=== PATIENT | female | born 1975 | race Asian ===

== ENCOUNTER 2018-06-05 10:29 | Day surgery (SDC) | payer MEDICAID ==
[~2018-06-05 10:29] MED LIST: CeFAZolin 2 GM/DEXTROSE 50 ML IV ONE
[2018-06-05] MEDS ORDERED: ONDANSETRON HCL 4 MG/2 ML VIAL IVP ONE (10:30)
[2018-06-05] MEDS ORDERED: FentaNYL CITRATE-PF 100 MCG/2 ML VIAL IVP ONE (10:30)
[2018-06-05] MEDS ORDERED: MIDAZOLAM HCL 2 MG/2 ML VIAL IVP ONE (10:30)
[2018-06-05] MEDS ORDERED: RINGERS SOLUTION,LACTATED 1,000 ML IV ONE ×2 (10:30→10:39)
[2018-06-05] MEDS ORDERED: SUCCINYLCHOLINE CHLORIDE 20 MG/ML 10 ML VIAL IVP ONE (10:30)
[2018-06-05] MEDS ORDERED: PROPOFOL 1% 20 ML VIAL IVP ONE (10:30)
[2018-06-05] MEDS ORDERED: CeFAZolin 2 GM/DEXTROSE 50 ML IV ONE (10:39)
[2018-06-05 11:06] LABS: EOSINOPHILS % (AUTO) 5.6 % (1.0-6.0); HEMATOCRIT 43.1 % (36-46); HEMOGLOBIN 14.4 g/dL (12.0-16.0); LYMPHOCYTES # (AUTO) 1.7 K/uL (1.0-4.8); MEAN CORPUSCULAR HEMOGLOBIN 29.8 pg (26.0-34.0); MEAN CORPUSCULAR HGB CONC 33.5 G/dL (31.0-37.0); MEAN CORPUSCULAR VOLUME 89 fL (80-100); MONOCYTES # (AUTO) 0.5 K/uL (0.1-1.0); MONOCYTES % (AUTO) 6.7 % (2.0-9.0); NEUTROPHILS # (AUTO) 4.8 K/uL (1.8-7.7); NEUTROPHILS % (AUTO) 63.7 % (40.0-70.0); PLATELET COUNT (AUTO) 312 K/uL (150-450); RED BLOOD CELL COUNT(AUTO) 4.83 MIL/uL (4.00-5.20); RED CELL DISTRIBUTION WIDTH 13.7 % (11.5-14.5)
[2018-06-05] MEDS ORDERED: HEPARIN SODIUM 1000 UNITS/NS 500 ML ONE (13:02)
[2018-06-05] MEDS ORDERED: LIDOCAINE 2%/EPI 1:200,000/PF 20 ML VIAL ONE (13:02)
[2018-06-05] MEDS ORDERED: BUPIVACAINE HCL/PF 0.5% 30 ML VIAL ONE (13:02)
[2018-06-05] MEDS ORDERED: HYDROmorphone 2 MG/ML SYRINGE IVP PRN ×2 (14:15)
[2018-06-05] MEDS ORDERED: ONDANSETRON HCL 4 MG/2 ML VIAL IVP PRN (14:15)
[2018-06-05] MEDS ORDERED: ACETAMINOPHEN 500 MG TABLET PO PRN (14:15)
[2018-06-05] MEDS ORDERED: FentaNYL CITRATE-PF 100 MCG/2 ML VIAL IVP PRN (14:15)
== END 2018-06-05 16:30 | disposition home or self-care (01) ==
LOC: SURGERY 10:29
PROVIDERS: ATTEND Surgery
DX: C50.911 Malignant neoplasm of unspecified site of right female breast (principal)
CPT/HCPCS: 36415; 36561; 71045; 77001; 84703; 85025; C1716; J0330; J0690 ×2; J1644; J2250; J2405; J2704; J3010; J3490; J7120

== ENCOUNTER 2019-05-18 14:03 | Inpatient (IN) | payer MEDICAID ==
[~2019-05-18] VITALS: Ht 160 cm; Wt 65.0 kg
[2019-05-18] MEDS ORDERED: SODIUM CHLORIDE 0.9% 1,650 ML IV ONE (14:35)
[2019-05-18] MEDS ORDERED: ACETAMINOPHEN 500 MG TABLET PO ONE (14:45)
[2019-05-18] MEDS ORDERED: KETOROLAC TROMETHAMINE 30 MG/ML VIAL IVP ONE (14:45)
[2019-05-18 15:01] LABS: BASOPHILS % (AUTO) 0.3 % (0.0-2.0); HEMATOCRIT 40.3 % (36-46); HEMOGLOBIN 12.6 g/dL (12.0-16.0); LYMPHOCYTES # (AUTO) 0.7 K/uL (1.0-4.8); LYMPHOCYTES % (AUTO) 5.5 % (22.0-44.0); MEAN CORPUSCULAR HEMOGLOBIN 26.9 pg (26.0-34.0); MEAN CORPUSCULAR HGB CONC 31.4 G/dL (31.0-37.0); MEAN CORPUSCULAR VOLUME 86 fL (80-100); MONOCYTES # (AUTO) 0.9 K/uL (0.1-1.0); MONOCYTES % (AUTO) 7.4 % (2.0-9.0); NEUTROPHILS # (AUTO) 10.7 K/uL (1.8-7.7); PLATELET COUNT (AUTO) 288 K/uL (150-450); RED CELL DISTRIBUTION WIDTH 15.9 % (11.5-14.5)
[2019-05-18 15:08] LABS: NEUTROPHILS % (AUTO) 85.8 % (40.0-70.0)
[2019-05-18 15:17] LABS: CARBON DIOXIDE 26 mmol/L (22-29); CHLORIDE 99 mmol/L (98-107); POTASSIUM 3.3 mmol/L (3.5-5.1); PROTHROMBIN TIME 10.8 SEC (9.4-11.6); SODIUM SERUM 136 mmol/L (136-145)
[2019-05-18 15:18] LABS: ANION GAP 11 mmol/L (8-16); CALCIUM, TOTAL 9.7 mg/dL (8.8-10.5); CREATININE 0.65 mg/dL (0.60-1.30); GLOMERULAR FILTR. RATE CALC > 60 mL/min (>60); GLUCOSE,RANDOM 106 mg/dL (70-110); UREA NITROGEN, BLOOD 6 mg/dL (7-18)
[2019-05-18] MEDS ORDERED: SODIUM CHLORIDE 0.9% 100 ML ONE (15:25)
[2019-05-18] MEDS ORDERED: IOVERSOL 320 MG/ML 100 ML VIAL ONE (15:25)
[2019-05-18 15:29] LABS: ALANINE AMINOTRANSFERASE 11 U/L (12-78); ALBUMIN 3.8 g/dL (3.4-5.0); ALKALINE PHOSPHATASE 98 U/L (46-116); ASPARTATE AMINOTRANSFERASE 12 U/L (15-37); BILIRUBIN,TOTAL 0.6 mg/dL (0.1-1.0); HCG,QUANTITATIVE 1 mIU/mL (0-6); LIPASE 103 U/L (73-393); TOTAL PROTEIN, SERUM 8.1 g/dL (6.4-8.2)
[2019-05-18 15:38] LABS: LACTIC ACID 1.1 mmol/L (0.4-2.0)
[2019-05-18 15:42] LABS: APPEARANCE,URINE CLOUDY (CLEAR); BILIRUBIN,URINE NEGATIVE (NEGATIVE); GLUCOSE, URINE (UA) NEGATIVE (NEGATIVE); KETONES,URINE TRACE mg/dL (NEGATIVE); LEUKOCYTE ESTERASE ,URINE LARGE (NEGATIVE); NITRATE,URINE NEGATIVE (NEGATIVE); OCCULT BLOOD,URINE LARGE (NEGATIVE); PROTEIN,URINE POS 1+ (NEGATIVE); UROBILINOGEN,URINE 0.2 mg/dL (<=1.0)
[2019-05-18 15:53] LABS: BACTERIA,URINE Moderate /HPF (None Seen); SQUAMOUS EPITHELIAL CELL,UR Few /LPF (None Seen)
[2019-05-18] MEDS ORDERED: POTASSIUM CHLORIDE 20 MEQ ER TABLET PO ONE (16:15)
[2019-05-18] MEDS ORDERED: CefTRIAXone 1 GM/DEXTROSE 50 ML IV ONE (17:15)
[2019-05-18] MEDS ORDERED: SODIUM CHLORIDE 0.9% 1,000 ML IV ONE (17:30)
[2019-05-18] MEDS ORDERED: MORPHINE SULFATE 2 MG/ML SYRINGE IVP PRN (17:30)
[2019-05-18] MEDS ORDERED: ONDANSETRON HCL 4 MG/2 ML VIAL IVP PRN (17:30)
[2019-05-18] MEDS ORDERED: ZOLPIDEM TARTRATE 5 MG TABLET PO PRN (17:30)
[2019-05-18] MEDS ORDERED: ACETAMINOPHEN 325 MG TABLET PO PRN (17:30)
[2019-05-18 21:51] VITALS: BP 151/74
[2019-05-18] MEDS: DOCUSATE SODIUM 100 MG CAPSULE PO SCH (22:09)
[2019-05-18] MEDS: HEPARIN SODIUM,PORCINE 5,000 UNITS/ML VIAL SQ SCH (23:15)
[2019-05-18] MEDS: ACETAMINOPHEN 325 MG TABLET PO PRN (23:35)
[2019-05-19] VITALS (8 sets, daily range): BP systolic 97–126; BP diastolic 58–77
[2019-05-19] MEDS: DOCUSATE SODIUM 100 MG CAPSULE PO SCH ×2 (08:18→19:50)
[2019-05-19] MEDS: FAMOTIDINE 20 MG TABLET PO SCH (08:18)
[2019-05-19] MEDS: HEPARIN SODIUM,PORCINE 5,000 UNITS/ML VIAL SQ SCH ×3 (08:33→23:10)
[2019-05-19] MEDS ORDERED: SODIUM CHLORIDE 0.9% 1,000 ML IV ONE (11:00)
[2019-05-19] MEDS ORDERED: POTASSIUM CHL 10 MEQ/WATER 50 ML IV PRN (11:30)
[2019-05-19] MEDS ORDERED: POTASSIUM CHLORIDE 20 MEQ ER TABLET PO PRN (11:30)
[2019-05-19 13:05] LABS: APPEARANCE,URINE CLEAR (CLEAR); BILIRUBIN,URINE NEGATIVE (NEGATIVE); GLUCOSE, URINE (UA) NEGATIVE (NEGATIVE); KETONES,URINE NEGATIVE (NEGATIVE); LEUKOCYTE ESTERASE ,URINE SMALL (NEGATIVE); NITRATE,URINE NEGATIVE (NEGATIVE); OCCULT BLOOD,URINE LARGE (NEGATIVE); PH,URINE 7.5 (5.0-8.0); PROTEIN,URINE NEGATIVE (NEGATIVE); UROBILINOGEN,URINE 0.2 mg/dL (<=1.0)
[2019-05-19 13:19] LABS: BACTERIA,URINE None Seen /HPF (None Seen); SQUAMOUS EPITHELIAL CELL,UR Few /LPF (None Seen)
[2019-05-19] MEDS: ACETAMINOPHEN 325 MG TABLET PO PRN ×2 (15:52→23:10)
[2019-05-19] MEDS: CefTRIAXone 1 GM/DEXTROSE 50 ML IV SCH (17:58)
[2019-05-20 05:25] VITALS: BP 104/73
[2019-05-20 07:24] LABS: BASOPHILS % (AUTO) 0.6 % (0.0-2.0); EOSINOPHILS % (AUTO) 1.9 % (1.0-6.0); HEMATOCRIT 36.8 % (36-46); HEMOGLOBIN 11.7 g/dL (12.0-16.0); LYMPHOCYTES # (AUTO) 0.9 K/uL (1.0-4.8); LYMPHOCYTES % (AUTO) 11.8 % (22.0-44.0); MEAN CORPUSCULAR HEMOGLOBIN 27.2 pg (26.0-34.0); MEAN CORPUSCULAR HGB CONC 31.9 G/dL (31.0-37.0); MEAN CORPUSCULAR VOLUME 85 fL (80-100); MONOCYTES % (AUTO) 12.3 % (2.0-9.0); NEUTROPHILS # (AUTO) 5.8 K/uL (1.8-7.7); NEUTROPHILS % (AUTO) 73.4 % (40.0-70.0); PLATELET COUNT (AUTO) 242 K/uL (150-450); RED BLOOD CELL COUNT(AUTO) 4.31 MIL/uL (4.00-5.20); RED CELL DISTRIBUTION WIDTH 15.8 % (11.5-14.5)
[2019-05-20 07:48] LABS: ANION GAP 8 mmol/L (8-16); CALCIUM, TOTAL 9.2 mg/dL (8.8-10.5); CARBON DIOXIDE 26 mmol/L (22-29); CHLORIDE 104 mmol/L (98-107); CREATININE 0.59 mg/dL (0.60-1.30); GLOMERULAR FILTR. RATE CALC > 60 mL/min (>60); GLUCOSE,RANDOM 99 mg/dL (70-110); POTASSIUM 3.6 mmol/L (3.5-5.1); SODIUM SERUM 138 mmol/L (136-145); UREA NITROGEN, BLOOD 6 mg/dL (7-18)
[2019-05-20 07:55] VITALS: BP 94/58
[2019-05-20] MEDS: DOCUSATE SODIUM 100 MG CAPSULE PO SCH ×2 (09:29→21:00)
[2019-05-20] MEDS: ACETAMINOPHEN 325 MG TABLET PO PRN (09:29)
[2019-05-20] MEDS: FAMOTIDINE 20 MG TABLET PO SCH (09:29)
[2019-05-20] MEDS: HEPARIN SODIUM,PORCINE 5,000 UNITS/ML VIAL SQ SCH ×2 (09:30→17:04)
[2019-05-20 11:59] VITALS: BP 100/70
[2019-05-20 17:01] VITALS: BP 107/62
[2019-05-20] MEDS: CefTRIAXone 1 GM/DEXTROSE 50 ML IV SCH (17:04)
[2019-05-20 20:00] VITALS: BP 102/64
[2019-05-21] VITALS: BP_SYST 109; BP_SYST 126; BP_DIAS 73
[2019-05-21] MEDS: HEPARIN SODIUM,PORCINE 5,000 UNITS/ML VIAL SQ SCH ×2 (00:47→08:36)
[2019-05-21 04:00] VITALS: BP 110/63
[2019-05-21 07:32] VITALS: BP 105/65
[2019-05-21] MEDS: FAMOTIDINE 20 MG TABLET PO SCH (08:36)
[2019-05-21] MEDS: DOCUSATE SODIUM 100 MG CAPSULE PO SCH (08:36)
[2019-05-21] MEDS ORDERED: CIPR-278 PO (09:19)
[2019-05-21 11:36] VITALS: BP 113/66
== END 2019-05-21 12:00 | disposition home or self-care (01) | DRG 720 ==
LOC: EMS 14:04 → 6N 20:00
PROVIDERS: ADMIT Internal Medicine; ATTEND Internal Medicine
DX: A41.9 Sepsis, unspecified organism (principal); C50.919 Malignant neoplasm of unspecified site of unspecified female breast; N12 Tubulo-interstitial nephritis, not specified as acute or chronic; Z85.3 Personal history of malignant neoplasm of breast; Z79.899 Other long term (current) drug therapy
CPT/HCPCS: 74177; 83605; 87040; 87086; 87210; 87491; 87591; 93005; J0696; J1644; J1885; J7030; J7050

== ENCOUNTER 2020-03-28 13:49 | Emergency (ER) | payer MEDICAID ==
[~2020-03-28 13:49] MED LIST changes: +CIPR-278 PO; -CeFAZolin 2 GM/DEXTROSE 50 ML IV ONE
== END 2020-03-28 14:37 | disposition left against medical advice (07) ==
LOC: EMS 13:57
DX: M54.2 Cervicalgia (principal); Z53.21 Procedure and treatment not carried out due to patient leaving prior to being seen by health care provider